=== PATIENT | male | born 1975 | race Two or more races ===

== ENCOUNTER 2019-06-10 13:44 | Emergency (ER) | payer OTHER ==
[2019-06-10 13:44] VITALS: BP 137/74
[2019-06-10 14:39] LABS: FECAL OB PT NEGATIVE (NEG)
[2019-06-10 14:48] LABS: BASO % 1 % (0-3); EOS # 0.1 x10^3/uL (0.0-0.7); EOS % 2 % (0-3); HEMATOCRIT 42.7 % (39.0-53.0); HEMOGLOBIN 14.5 g/dL (13.0-17.5); LYMPH # 1.2 x10^3/uL (1.0-4.8); LYMPH % 23 % (24-48); MEAN CORPUSCULAR HEMOGLOBIN 32 pg (25-35); MEAN CORPUSCULAR HGB CONC 34 g/dL (31-37); MEAN CORPUSCULAR VOLUME 95 fL (79-100); MONO # 0.7 x10^3/uL (0.0-1.1); MONO % 14 % (0-9); NEUT # 3.1 x10^3uL (1.8-7.7); NEUT % 60 % (31-73); PLATELET COUNT 289 x10^3/uL (140-400); RED BLOOD COUNT 4.48 x10^6/uL (4.30-5.70); RED CELL DISTRIBUTION WIDTH 12.8 % (11.5-14.5); WHITE BLOOD COUNT 5.2 x10^3/uL (4.0-11.0)
[2019-06-10 15:02] LABS: ALBUMIN 3.7 g/dL (3.4-5.0); CALCIUM 8.8 mg/dL (8.5-10.1); CREATININE 1.4 mg/dL (0.7-1.3); GFR 55.1; POTASSIUM 4.1 mmol/L (3.5-5.1); TOTAL BILIRUBIN 0.5 mg/dL (0.2-1.0); TOTAL PROTEIN 7.3 g/dL (6.4-8.2)
[2019-06-10] MEDS ORDERED: CIPR500T94 PO (15:24)
[2019-06-10] MEDS ORDERED: METR500T PO (15:24)
[2019-06-10] MEDS ORDERED: DIPH1TAB PO (15:24)
--- NOTE | 2019-06-10 17:19 | ED.ADGEN ---
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 Patient has been evaluated emergency department and by a local express care yesterday and started on dicyclomine. Take Imodium without improvement. Denies dizziness lightheadedness nausea vomiting. No fevers chills, sweats. Reports diffuse cramping migratory abdominal pain. No other acute symptoms or complaints. [] Review of Systems Review of Systems Review of symptoms as per history of present illness. All other review symptoms are negative. [] All other systems were reviewed and found to be within normal limits, except as documented in this note. Allergies Allergies Allergies Coded Allergies Type Severity Reaction Last Updated Verified No Known Drug Allergies 06/10/19 No Physical Exam Physical Exam Constitutional: Well developed, well nourished, no acute distress, non-toxic appearance. [] HENT: Normocephalic, atraumatic, bilateral external ears normal, oropharynx moist, no oral exudates, nose normal. [] Eyes: PERRLA, EOMI, conjunctiva normal, no discharge. [] Neck: Normal range of motion, no tenderness,. [] Cardiovascular:Heart rate regular rhythm, no murmur [] Lungs & Thorax: Bilateral breath sounds clear to auscultation [] Abdomen: Bowel sounds normal, soft, no tenderness, increase bowel sounds [] Skin: Warm, dry. [] Back: No tenderness. [] Extremities: No tenderness, no edema. [] Neurologic: Alert and oriented X 3, normal motor function, normal sensory function, no focal deficits noted. [] Psychologic: Affect normal, judgement normal, mood normal. [] Current Patient Data Vital Signs Vital Signs Date Time Temp Pulse Resp B/P (MAP) Pulse Ox O2 Delivery O2 Flow Rate FiO2 06/10/19 13:44 97.9 55 14 99 Room Air Lab Results Laboratory Tests Test 06/10/19 14:05 06/10/19 14:30 Stool Occult Blood Negative (NEG) White Blood Count 5.2 x10^3/uL (4.0-11.0) Red Blood Count 4.48 x10^6/uL (4.30-5.70) Hemoglobin 14.5 g/dL (13.0-17.5) Hematocrit 42.7 % (39.0-53.0) Mean Corpuscular Volume 95 fL (79-100) Mean Corpuscular Hemoglobin 32 pg (25-35) Mean Corpuscular Hemoglobin Concent 34 g/dL (31-37) Red Cell Distribution Width 12.8 % (11.5-14.5) Platelet Count 289 x10^3/uL (140-400) Neutrophils (%) (Auto) 60 % (31-73) Lymphocytes (%) (Auto) 23 % (24-48) L Monocytes (%) (Auto) 14 % (0-9) H Eosinophils (%) (Auto) 2 % (0-3) Basophils (%) (Auto) 1 % (0-3) Neutrophils # (Auto) 3.1 x10^3uL (1.8-7.7) Lymphocytes # (Auto) 1.2 x10^3/uL (1.0-4.8) Monocytes # (Auto) 0.7 x10^3/uL (0.0-1.1) Eosinophils # (Auto) 0.1 x10^3/uL (0.0-0.7) Basophils # (Auto) 0.0 x10^3/uL (0.0-0.2) Sodium Level 138 mmol/L (136-145) Potassium Level 4.1 mmol/L (3.5-5.1) Chloride Level 103 mmol/L (98-107) Carbon Dioxide Level 28 mmol/L (21-32) Anion Gap 7 (6-14) Blood Urea Nitrogen 13 mg/dL (8-26) Creatinine 1.4 mg/dL (0.7-1.3) H Estimated GFR (Cockcroft-Gault) 55.1 BUN/Creatinine Ratio 9 (6-20) Glucose Level 85 mg/dL (70-99) Calcium Level 8.8 mg/dL (8.5-10.1) Total Bilirubin 0.5 mg/dL (0.2-1.0) Aspartate Amino Transferase (AST) 23 U/L (15-37) Alanine Aminotransferase (ALT) 29 U/L (16-63) Alkaline Phosphatase 50 U/L (46-116) Total Protein 7.3 g/dL (6.4-8.2) Albumin 3.7 g/dL (3.4-5.0) Albumin/Globulin Ratio 1.0 (1.0-1.7) EKG EKG [] Radiology/Procedures Radiology/Procedures [] Course & Med Decision Making Course & Med Decision Making Pertinent Labs and Imaging studies reviewed. (See chart for details) [Labs reviewed. C. difficile sent and pending, urine soft newly tender. Will treat empirically and prescribed Lomotil with instructions to follow-up with local PCP for C. difficile results and further evaluation] Final Impression Final Impression [#1 diarrhea 2. Dehydration] Dragon Disclaimer Dragon Disclaimer This electronic medical record was generated, in whole or in part, using a voice recognition dictation system. JASON MEDRANO DO Jun 10, 2019 17:19
== END 2019-06-10 15:40 | disposition home or self-care (01) ==
LOC: ER 13:44
DX: R19.7 Diarrhea, unspecified (principal); E86.0 Dehydration; J45.909 Unspecified asthma, uncomplicated
CPT/HCPCS: 36415; 80053; 82274; 85025; 87493; 99284

== ENCOUNTER → 2019-12-31 | Outpatient (CLI) | payer OTHER ==
[~2019-12-31] MED LIST: CIPR500T94 PO; DIPH1TAB PO; METR500T PO
== END ==
LOC: LAB 14:37
PROVIDERS: ATTEND Internal Medicine Gastroenterology
DX: R19.7 Diarrhea, unspecified (principal)
CPT/HCPCS: 36415; 87177; 87209; 87493

== ENCOUNTER → 2020-01-15 | Outpatient (CLI) | payer OTHER ==
[2020-01-15 11:54] LABS: BASO % 1 % (0-3); EOS # 0.2 x10^3/uL (0.0-0.7); EOS % 3 % (0-3); HEMATOCRIT 44.5 % (39.0-53.0); LYMPH # 1.5 x10^3/uL (1.0-4.8); LYMPH % 27 % (24-48); MEAN CORPUSCULAR HEMOGLOBIN 33 pg (25-35); MEAN CORPUSCULAR HGB CONC 34 g/dL (31-37); MEAN CORPUSCULAR VOLUME 97 fL (79-100); MONO # 0.7 x10^3/uL (0.0-1.1); MONO % 13 % (0-9); NEUT % 55 % (31-73); PLATELET COUNT 291 x10^3/uL (140-400); WHITE BLOOD COUNT 5.5 x10^3/uL (4.0-11.0)
[2020-01-15 13:04] LABS: SEDIMENTATION RATE 2 (0-15)
== END ==
LOC: LAB 10:54
PROVIDERS: ATTEND Internal Medicine Gastroenterology
DX: R19.7 Diarrhea, unspecified (principal)
CPT/HCPCS: 36415; 85025; 85651; 86140

== ENCOUNTER 2020-06-20 08:50 | Emergency (ER) | payer OTHER ==
[~2020-06-20] VITALS: Ht 188 cm; Wt 97.0 kg
--- NOTE | 2020-06-20 08:59 | PHYS DOC ---
Past History Past Medical History: Asthma Past Surgical History: No Surgical History Alcohol Use: None Drug Use: None General Adult EDM: Chief Complaint: Left hand laceration HPI: HPI: 45-year-old male presents to the ER with complaint of left hand laceration. He was climbing out of his tree stand when he slipped and cut his left hand. He is a laceration just proximal to the index finger and the little finger. He has no numbness or tingling distally. Tetanus is up-to-date. Range of motion is normal. Review of Systems: Review of Systems: All other systems negative except as documented in HPI. Heart Score: Risk Factors: Risk Factors: DM, Current or recent (<one month) smoker, HTN, HLP, family history of CAD, obesity. Risk Scores: Score 0 - 3: 2.5% MACE over next 6 weeks - Discharge Home Score 4 - 6: 20.3% MACE over next 6 weeks - Admit for Clinical Observation Score 7 - 10: 72.7% MACE over next 6 weeks - Early Invasive Strategies Allergies: Allergies: Allergies Coded Allergies Type Severity Reaction Last Updated Verified No Known Drug Allergies 06/10/19 No Physical Exam: PE: Constitutional: Well developed, well nourished HENT: Normocephalic, atraumatic, bilateral external ears normal, oropharynx moist, no oral exudates, nose normal. [] Eyes: PERRLA, EOMI, conjunctiva normal, no discharge. [] Neck: Normal range of motion, no tenderness, supple, no stridor. [] Cardiovascular:Heart rate regular rhythm, no murmur [] Lungs & Thorax: Bilateral breath sounds clear to auscultation [] Skin: Warm, dry, no erythema, no rash. 2 lacerations to the left hand on the palmar aspect. The first laceration is approximately 1.5 centers in length and located just proximal to the index finger and the second laceration is approximately 1.5 cm in length and just proximal to the little finger. Back: No tenderness, no CVA tenderness. [] Extremities: Normal except for the left hand which has lacerations as described under skin. Neurologic: Alert and oriented X 3, normal motor function, normal sensory function, no focal deficits noted. [] Psychologic: Affect normal, judgement normal, mood normal. [] EKG: EKG: [] Radiology/Procedures: Radiology/Procedures: Left hand x-ray is negative. Laceration repair: 2 cm laceration just proximal to the left index finger was anesthetized with 1% lidocaine with epinephrine using 1 cc. Area was flushed by nursing staff and closed with five-point 0 Ethilon using 7 simple interrupted sutures. Dressing was applied by nursing staff along with antibiotic ointment and patient tolerated well. 1.5 cm laceration just proximal to the left little finger was anesthetized with 1% lidocaine with epinephrine using 1 cc. Area was flushed by nursing staff and closed with five-point 0 Ethilon using 4 simple interrupted sutures. Dressing was applied by nursing staff along with antibiotic ointment and patient tolerated well. Course & Med Decision Making: Course & Med Decision Making Pertinent Labs and Imaging studies reviewed. (See chart for details) Patient seen for hand laceration. X-rays negative. Lacerations cleaned and repaired as described above. Follow-up with primary care physician in 7 to 10 days for suture removal. Dragon Disclaimer: Dragon Disclaimer: This electronic medical record was generated, in whole or in part, using a voice recognition dictation system. Departure Departure: Impression: Primary Impression: Laceration of left hand Disposition: HOME/RESIDENCE PRIOR TO ADM Condition: STABLE Referrals: LOUIE DUMONT DO (PCP) Patient Instructions: Laceration Care, Adult Scripts Tramadol Hcl (TRAMADOL HCL) 50 Mg Tablet 50 MG PO PRN Q6HRS PRN for PAIN for 3 Days, #12 TAB 0 Refills Prov: BRYAN BOBBY DO 06/20/20 Justification of Admission: Justification of Admission: Justification of Admission Dx: N/A BRYAN BOBBY DO Jun 20, 2020 08:59
[2020-06-20] MEDS ORDERED: LIDOCAINE 1%/EPI 1:100,000 20 ML VIAL. IJ ONE (09:00)
[2020-06-20 09:17] VITALS: BP 136/78
[2020-06-20] MEDS ORDERED: TRAM50TA PO (09:58)
[2020-06-20] MEDS ORDERED: NEOMY/BACITR/POLYMYXIN OINT PACKET. TP ONE ×2 (10:00→10:12)
--- NOTE | 2020-06-20 10:02 | RAD ---
Study: CR HAND LEFT 3V Indication: Laceration injury. Fifth finger pain. Comparison: None. Findings: Edematous appearance of the soft tissues along the ulnar margin of the hand centered at the fifth metacarpal. No retained radiopaque foreign body. No fracture at this location or elsewhere. Impression: No acute osseous abnormality. No retained radiopaque foreign body. Electronically signed by: BOLIVAR SMITH MD (06/20/2020 9:59 AM) [id number]
== END 2020-06-20 10:18 | disposition home or self-care (01) ==
LOC: ER 08:50
DX: S61.412A Laceration without foreign body of left hand, initial encounter (principal); J45.909 Unspecified asthma, uncomplicated; W26.8XXA Contact with other sharp object(s), not elsewhere classified, initial encounter; Y93.89 Activity, other specified; Y92.89 Other specified places as the place of occurrence of the external cause; Y99.8 Other external cause status
CPT/HCPCS: 12002; 73130; 99284

== ENCOUNTER 2020-06-21 08:38 | Emergency (ER) | payer OTHER ==
[~2020-06-21] VITALS: Ht 188 cm; Wt 97.0 kg
[~2020-06-21 08:38] MED LIST changes: +TRAM50TA PO
--- NOTE | 2020-06-21 08:51 | PHYS DOC ---
Past History Past Medical History: No Pertinent History Past Surgical History: No Surgical History Alcohol Use: Heavy Drug Use: None Adult General Chief Complaint Chief Complaint: WOUND CHECK HPI HPI Patient is a 45-year-old male who presents to the emergency room for wound check. Patient had sutures placed yesterday and felt like may be an area had opened up. He also states that he needs a tetanus shot as he thought it was up-to-date but he is not. He denies other complaints Review of Systems Review of Systems Negative other than noted Allergies Allergies Allergies Coded Allergies Type Severity Reaction Last Updated Verified No Known Drug Allergies 06/21/20 No Physical Exam Physical Exam General: Awake, alert, NAD. Well Nourished, well hydrated. Cooperative HEENT: Atraumatic, EOMI, PERRL, airway patent, moist oral mucosa Neck: Supple, trachea midline MSK: No obvious deformities Skin: Warm, dry, 2 laceration to L palm with sutures in place, no dehiscence, no drainage, no bleeding Neuro: A&O x3, speech NL, sensory and motor grossly intact, no focal deficits Psych: Normal affect, normal mood, not suicidal or homicidal EKG EKG [] Radiology/Procedures Radiology/Procedures [] Course & Med Decision Making Course & Med Decision Making Pertinent Labs and Imaging studies reviewed. (See chart for details) Patient is a 45-year-old male who presents to the emergency room for a wound check. Wound appears normal at this time. I have discussed with him that he will need his sutures removed in 7 days. Tetanus will be updated. Patient's test results and vitals while in the ED were fully reviewed and discussed with the patient. Patient is stable and at this time does not need admission to the hospital. We have discussed strict return precautions and the importance of following up with their Primary Care Physician. Patient stated understanding and was given an opportunity to ask any questions. Patient is in agreement with plan. Dragon Disclaimer Dragon Disclaimer This electronic medical record was generated, in whole or in part, using a voice recognition dictation system. Departure Departure: Impression: Primary Impression: Hand laceration Disposition: HOME/RESIDENCE PRIOR TO ADM Condition: STABLE Referrals: EZE RUSS (PCP) Patient Instructions: Laceration Care, Adult Justification of Admission: Justification of Admission: Justification of Admission Dx: N/A SANGEETHA NASCIMENTO MD Jun 21, 2020 08:51
[2020-06-21] MEDS ORDERED: DIPH,PERTUSS(ACELL),TET VAC/PF 0.5 ML SYRINGE. VAX IM ONE (09:00)
[2020-06-21 09:05] VITALS: BP 133/78
== END 2020-06-21 09:05 | disposition home or self-care (01) ==
LOC: ER 08:38
DX: S61.412D Laceration without foreign body of left hand, subsequent encounter (principal); F10.20 Alcohol dependence, uncomplicated; X58.XXXD Exposure to other specified factors, subsequent encounter; Y90.9 Presence of alcohol in blood, level not specified
CPT/HCPCS: 90471; 90715; 99283